=== PATIENT | female | born 1990 | race African-American/Black ===

== ENCOUNTER 2019-07-31 10:06 | Emergency (ER) | payer MEDICAID ==
[~2019-07-31] VITALS: Ht 167.6 cm; Wt 59.0 kg
[2019-07-31] MEDS ORDERED: ONDANSETRON HCL 4MG/2ML INJ IV STA (10:15)
[2019-07-31] MEDS ORDERED: SODIUM CHLORIDE 0.9% 1,000 ML IV ONE (10:15)
[2019-07-31] MEDS ORDERED: MORPHINE SULFATE 4 MG/ML CPJ (NOT FOR IM USE) IV STA (10:15)
[2019-07-31 11:46] LABS: CHLORIDE 113 mEq/L (98-107)
[2019-07-31 11:48] LABS: PROTHROMBIN TIME 11.3 sec (9.6-11.0)
[2019-07-31 11:58] LABS: HEMATOCRIT. 40.4 % (36.0-48.0); HEMOGLOBIN. 13.4 g/dL (12.0-16.0); MEAN CORPUSCULAR HEMOGLOBIN 31.5 pg (28.0-32.0); MEAN PLATELET VOLUME 7.9 fl (7.4-10.4); PLATELET 299 x1000/uL (130-400); RED BLOOD CELL COUNT 4.25 mill/uL (4.2-5.4)
[2019-07-31 12:05] LABS: HCG SCREEN NEGATIVE
[2019-07-31 12:59] LABS: PLATELET ESTIMATE NORMAL
[2019-07-31] MEDS ORDERED: MORPHINE SULFATE 4 MG/ML CPJ (NOT FOR IM USE) IV ONE (13:45)
[2019-07-31 14:00] VITALS: BP 114/70
== END 2019-07-31 15:40 | disposition home or self-care (01) ==
LOC: ER 10:21 → CANBEDREQ 16:09
DX: R10.9 Unspecified abdominal pain (principal); R11.2 Nausea with vomiting, unspecified
CPT/HCPCS: 36415; 74176; 80053; 83690; 84703; 85025; 85610; 96361; 96374; 96375; 96376; 99285; J2270; J2405; J7030